=== PATIENT | female | born 1950 | race Caucasian/White ===

== ENCOUNTER 2019-05-01 18:41 | Inpatient (IN) | payer MEDICARE, OTHER ==
[~2019-05-01] VITALS: Ht 162.6 cm; Wt 87.0 kg
[~2019-05-01 18:41] MED LIST: ADULT ASA81 MG OR; ASPIRIN EC81 MG PO; ATORVASTATIN CA40 MG PO; BACLOFEN10 MG PO; BAYER ASA325 MG PO; CITALOPRAM40 MG PO; CRESTOR20 MG OR; DIOVAN HC1 OR; DIOVAN160 MG PO; FLUCONAZOLE150 MG PO; FUROSEMIDE20 MG PO; GABAPENTIN300 MG PO; HYDROCO/APAP1 T10 OR; HYDROCODONE/ACE1 TA8 PO; KADIAN60 MG OR; KLONOPIN1 MG OR; LASIX 10 MG10 MG/TA1 OR; LEXAPRO20 MG OR; LIPITOR40 MG PO; LORTAB 7.5 PO; METFORMIN500 MG PO; RANITIDINE150 M1 OR; VITAMIN D2000 UNI1 OR; ZANTAC150 MG OR; [UNRECOGNIZED DRUG - SUPPLY]
[2019-05-01 19:31] LABS: HEMATOCRIT 43.6 % (37.0-47.0); HEMOGLOBIN 14.9 g/dl (12.0-16.0); IMMATURE GRANULOCYTES 0.4 % (0.0-5.0); MEAN CELL VOLUME 91.8 fL CALC (80.0-100.0); MEAN CORPUSCULAR HGB 31.4 pG CALC (26.0-32.0); MEAN CORPUSCULAR HGB CONC 34.2 g/L CALC (32.0-36.0); NEUT# 8.18 thou/uL (2.00-7.15); RED BLOOD COUNT 4.75 mill/uL (4.20-5.60)
[2019-05-01] MEDS ORDERED: CYCLOBENZAPR5 MG PO (19:50)
[2019-05-01] MEDS ORDERED: MILLIPRED5 MG PO (19:51)
[2019-05-01] MEDS ORDERED: HYDROCODONE BIT1 TA7 PO (19:53)
[2019-05-01] MEDS ORDERED: GLIPIZIDE ER10 M1 PO (19:54)
[2019-05-01] MEDS ORDERED: COZAAR50 MG PO (19:56)
[2019-05-01] MEDS ORDERED: FOLIC ACID1 M1 PO (19:59)
[2019-05-01] MEDS ORDERED: METHOTREXATE2.5 M2 PO (20:02)
[2019-05-01] MEDS ORDERED: METOPROL TAR25 M1 PO (20:03)
[2019-05-01] MEDS ORDERED: MECLIZINE25 M1 PO (20:04)
[2019-05-01] MEDS ORDERED: PRAMIPEXOLE DI0.5 MG PO (20:06)
[2019-05-01] MEDS ORDERED: BUTALBITAL/ACET1 CA1 PO (20:08)
[2019-05-01] MEDS ORDERED: PREDNISONE10 M2 PO (20:10)
[2019-05-01] MEDS ORDERED: LIPITOR20 M1 PO (20:12)
[2019-05-01 20:18] LABS: ALBUMIN 3.8 g/dL (3.2-5.0); ALKALINE PHOSPHATASE 116 u/l (38-126); BILIRUBIN, TOTAL 0.9 mg/dL (0.0-1.4); BUN 7 mg/dL (8-23); BUN/CREATININE RATIO 10 (12-20 (CALC)); CHLORIDE 92 mmol/l (95-108); CREATININE 0.7 mg/dL (0.5-1.0); GFR > 60 ML/MIN (>=60 (CALC)); GFR FOR AFR.AMER. > 60 ML/MIN (>=60 (CALC)); POTASSIUM 3.5 mmol/l (3.5-5.1); TOTAL PROTEIN 7.3 g/dL (6.3-8.2)
[2019-05-01 20:19] LABS: ANION GAP 17 (6-22 (CALC)); CARBON DIOXIDE 22 mmol/l (22-30); SGOT/AST 48 u/l (9-36); SODIUM 127 mmol/l (137-146)
[2019-05-01 22:00] VITALS: BP 131/66
[2019-05-02 03:25] VITALS: BP 147/69
[2019-05-02 08:00] VITALS: BP 151/61
[2019-05-02 10:31] LABS: HEMATOCRIT 47.9 % (37.0-47.0); HEMOGLOBIN 16.1 g/dl (12.0-16.0); IMMATURE GRANULOCYTES 0.4 % (0.0-5.0); MEAN CELL VOLUME 92.1 fL CALC (80.0-100.0); MEAN CORPUSCULAR HGB CONC 33.6 g/L CALC (32.0-36.0); NEUT# 10.55 thou/uL (2.00-7.15); RED BLOOD COUNT 5.2 mill/uL (4.20-5.60); RED CELL DISTRI WIDTH 16.2 % (11.5-15.5)
[2019-05-02 10:55] LABS: ANION GAP 21 (6-22 (CALC)); BUN 15 mg/dL (8-23); BUN/CREATININE RATIO 19 (12-20 (CALC)); CARBON DIOXIDE 20 mmol/l (22-30); CHLORIDE 94 mmol/l (95-108); CREATININE 0.8 mg/dL (0.5-1.0); GFR > 60 ML/MIN (>=60 (CALC)); GFR FOR AFR.AMER. > 60 ML/MIN (>=60 (CALC)); MAGNESIUM 1.9 mg/dL (1.6-2.3); SODIUM 131 mmol/l (137-146)
[2019-05-02 13:52] LABS: URINE BILIRUBIN - DIPSTICK NEGATIVE (NEGATIVE); URINE BLOOD DIPSTICK MODERATE (NEGATIVE); URINE COLOR YELLOW; URINE GLUCOSE - DIPSTICK >=1000 mg/dL (NEGATIVE); URINE KETONE NEGATIVE (NEGATIVE); URINE LEUK ESTERASE NEGATIVE (NEGATIVE); URINE NITRITE - DIPSTICK NEGATIVE (Negative); URINE PH 5.5 (4.5-8.0); URINE PROTEIN - DIPSTICK 30 mg/dL (NEG-TRACE); URINE SPECIFIC GRAVITY 1.015; URINE UROBILINOGEN - DIPSTICK 0.2 E.U./dL (0.2)
[2019-05-02 13:55] LABS: URINE MUCUS FEW hpf (NONE-FEW)
[2019-05-02 15:45] VITALS: BP 102/59
[2019-05-02 18:00] VITALS: BP 131/67
[2019-05-03 03:51] VITALS: BP 115/49
[2019-05-03 05:15] LABS: HEMATOCRIT 43.1 % (37.0-47.0); HEMOGLOBIN 14.4 g/dl (12.0-16.0); IMMATURE GRANULOCYTES 0.5 % (0.0-5.0); MEAN CELL VOLUME 94.1 fL CALC (80.0-100.0); MEAN CORPUSCULAR HGB 31.4 pG CALC (26.0-32.0); MEAN CORPUSCULAR HGB CONC 33.4 g/L CALC (32.0-36.0); NEUT# 12.7 thou/uL (2.00-7.15); RED BLOOD COUNT 4.58 mill/uL (4.20-5.60)
[2019-05-03 05:46] LABS: BUN 16 mg/dL (8-23); BUN/CREATININE RATIO 23 (12-20 (CALC)); CHLORIDE 90 mmol/l (95-108); CREATININE 0.7 mg/dL (0.5-1.0); GFR > 60 ML/MIN (>=60 (CALC)); GFR FOR AFR.AMER. > 60 ML/MIN (>=60 (CALC)); MAGNESIUM 1.9 mg/dL (1.6-2.3); POTASSIUM 3.9 mmol/l (3.5-5.1); SODIUM 127 mmol/l (137-146)
[2019-05-03 05:58] LABS: ANION GAP 15 (6-22 (CALC)); CARBON DIOXIDE 26 mmol/l (22-30)
[2019-05-03 07:50] VITALS: BP 128/53
[2019-05-03 15:11] VITALS: BP 114/54
[2019-05-03 19:47] VITALS: BP 127/60
[2019-05-04 04:38] VITALS: BP 112/56
[2019-05-04 05:17] LABS: HEMATOCRIT 40.1 % (37.0-47.0); HEMOGLOBIN 13.3 g/dl (12.0-16.0); MEAN CELL VOLUME 94.8 fL CALC (80.0-100.0); MEAN CORPUSCULAR HGB 31.4 pG CALC (26.0-32.0); MEAN CORPUSCULAR HGB CONC 33.2 g/L CALC (32.0-36.0); RED BLOOD COUNT 4.23 mill/uL (4.20-5.60); RED CELL DISTRI WIDTH 15.9 % (11.5-15.5)
[2019-05-04 05:35] LABS: BUN 21 mg/dL (8-23); BUN/CREATININE RATIO 27 (12-20 (CALC)); CARBON DIOXIDE 30 mmol/l (22-30); CHLORIDE 93 mmol/l (95-108); CREATININE 0.8 mg/dL (0.5-1.0); GFR > 60 ML/MIN (>=60 (CALC)); GFR FOR AFR.AMER. > 60 ML/MIN (>=60 (CALC)); SODIUM 130 mmol/l (137-146)
[2019-05-04 05:39] LABS: ANION GAP 12 (6-22 (CALC)); POTASSIUM 4.7 mmol/l (3.5-5.1)
[2019-05-04 07:30] VITALS: BP 134/49
[2019-05-04 10:55] VITALS: BP 117/50
[2019-05-04 15:15] VITALS: BP 138/63
[2019-05-04 19:07] VITALS: BP 129/58
[2019-05-05 03:35] VITALS: BP 136/48
[2019-05-05 05:22] LABS: HEMATOCRIT 38.1 % (37.0-47.0); HEMOGLOBIN 12.4 g/dl (12.0-16.0); MEAN CORPUSCULAR HGB 30.9 pG CALC (26.0-32.0); MEAN CORPUSCULAR HGB CONC 32.5 g/L CALC (32.0-36.0); RED BLOOD COUNT 4.01 mill/uL (4.20-5.60)
[2019-05-05 05:50] LABS: ALKALINE PHOSPHATASE 104 u/l (38-126); ANION GAP 11 (6-22 (CALC)); BUN 23 mg/dL (8-23); BUN/CREATININE RATIO 31 (12-20 (CALC)); CARBON DIOXIDE 29 mmol/l (22-30); CHLORIDE 93 mmol/l (95-108); CREATININE 0.8 mg/dL (0.5-1.0); GFR > 60 ML/MIN (>=60 (CALC)); GFR FOR AFR.AMER. > 60 ML/MIN (>=60 (CALC)); MAGNESIUM 2.3 mg/dL (1.6-2.3); SGOT/AST 21 u/l (9-36); SODIUM 129 mmol/l (137-146); TOTAL PROTEIN 6.1 g/dL (6.3-8.2)
[2019-05-05 05:51] LABS: BILIRUBIN, TOTAL 0.4 mg/dL (0.0-1.4)
[2019-05-05 07:45] VITALS: BP 124/54
[2019-05-05 15:05] VITALS: BP 123/52
[2019-05-05 18:38] VITALS: BP 163/62
[2019-05-06 00:39] VITALS: BP 158/66
[2019-05-06 03:30] VITALS: BP 159/66
[2019-05-06 05:40] LABS: ANION GAP 12 (6-22 (CALC)); BUN 20 mg/dL (8-23); BUN/CREATININE RATIO 33 (12-20 (CALC)); CARBON DIOXIDE 29 mmol/l (22-30); CHLORIDE 97 mmol/l (95-108); CREATININE 0.6 mg/dL (0.5-1.0); GFR > 60 ML/MIN (>=60 (CALC)); GFR FOR AFR.AMER. > 60 ML/MIN (>=60 (CALC)); MAGNESIUM 2.3 mg/dL (1.6-2.3); POTASSIUM 4.8 mmol/l (3.5-5.1); SODIUM 133 mmol/l (137-146)
[2019-05-06 07:30] VITALS: BP 156/53
[2019-05-06 15:37] VITALS: BP 173/57
[2019-05-06 18:32] VITALS: BP 128/69
[2019-05-07 08:00] VITALS: BP 101/64
[2019-05-07 15:24] VITALS: BP 119/58
[2019-05-07 19:35] VITALS: BP 141/64
[2019-05-08 04:00] VITALS: BP 135/65
[2019-05-08 05:56] LABS: IMMATURE GRANULOCYTES 1.8 % (0.0-5.0); MEAN CELL VOLUME 94.2 fL CALC (80.0-100.0); MEAN CORPUSCULAR HGB 31.1 pG CALC (26.0-32.0); NEUT# 13.96 thou/uL (2.00-7.15); RED BLOOD COUNT 4.79 mill/uL (4.20-5.60); RED CELL DISTRI WIDTH 16.2 % (11.5-15.5)
[2019-05-08 06:11] LABS: HEMATOCRIT 45.1 % (37.0-47.0); HEMOGLOBIN 14.9 g/dl (12.0-16.0)
[2019-05-08 06:17] LABS: ANION GAP 16 (6-22 (CALC)); BUN 22 mg/dL (8-23); BUN/CREATININE RATIO 29 (12-20 (CALC)); CARBON DIOXIDE 28 mmol/l (22-30); CHLORIDE 94 mmol/l (95-108); CREATININE 0.7 mg/dL (0.5-1.0); GFR > 60 ML/MIN (>=60 (CALC)); GFR FOR AFR.AMER. > 60 ML/MIN (>=60 (CALC)); POTASSIUM 4.7 mmol/l (3.5-5.1); SODIUM 134 mmol/l (137-146)
[2019-05-08 09:13] VITALS: BP 159/75
[2019-05-08] MEDS ORDERED: AMOX/K CLAV875 M1 PO (13:52)
[2019-05-08] MEDS ORDERED: ZITHROMAX500 MG PO (13:52)
[2019-05-08] MEDS ORDERED: PREDNISONE10 MG PO (13:52)
[2019-05-08] MEDS ORDERED: IPRATROPIU0.5 MG/3 M IN (17:38)
== END 2019-05-08 19:00 | disposition home health service (06) | DRG 191 ==
LOC: ED 18:41 → ED-I 20:57 → ED 21:08 → MS2 21:09
PROVIDERS: Family Medicine; Internal Medicine; Nurse Practitioner Family; ADMIT Internal Medicine; ATTEND Internal Medicine
DX: J43.9 Emphysema, unspecified (principal); E87.1 Hypo-osmolality and hyponatremia; I10 Essential (primary) hypertension; E11.9 Type 2 diabetes mellitus without complications; M79.7 Fibromyalgia; M06.9 Rheumatoid arthritis, unspecified; G25.81 Restless legs syndrome; F17.200 Nicotine dependence, unspecified, uncomplicated; E78.5 Hyperlipidemia, unspecified; G89.4 Chronic pain syndrome; M53.3 Sacrococcygeal disorders, not elsewhere classified; M62.81 Muscle weakness (generalized); M19.90 Unspecified osteoarthritis, unspecified site; R41.0 Disorientation, unspecified; R40.0 Somnolence; T48.4X5A Adverse effect of expectorants, initial encounter; T40.2X5A Adverse effect of other opioids, initial encounter; W19.XXXA Unspecified fall, initial encounter; Z85.118 Personal history of other malignant neoplasm of bronchus and lung; Z79.84 Long term (current) use of oral hypoglycemic drugs; Z90.2 Acquired absence of lung [part of]; Z88.0 Allergy status to penicillin
CPT/HCPCS: G0378; J1650; Q9967

== ENCOUNTER 2021-06-05 14:57 | Emergency (ER) | payer MEDICARE, OTHER ==
[~2021-06-05] VITALS: Ht 162.6 cm; Wt 80.0 kg
[~2021-06-05 14:57] MED LIST changes: +AMOX/K CLAV875 M1 PO; +BUTALBITAL/ACET1 CA1 PO; +COZAAR50 MG PO; +CYCLOBENZAPR5 MG PO; +FOLIC ACID1 M1 PO; +GLIPIZIDE ER10 M1 PO; +HYDROCODONE BIT1 TA7 PO; +IPRATROPIU0.5 MG/3 M IN; +LIPITOR20 M1 PO; +MECLIZINE25 M1 PO; +METHOTREXATE2.5 M2 PO; +METOPROL TAR25 M1 PO; +MILLIPRED5 MG PO; +PRAMIPEXOLE DI0.5 MG PO; +PREDNISONE10 M2 PO; +PREDNISONE10 MG PO; +TAM75CAP PO; +ZITHROMAX500 MG PO
[2021-06-05 16:19] LABS: IMMATURE GRANULOCYTES 0.4 % (0.0-5.0); MEAN CELL VOLUME 94.4 fL CALC (80.0-100.0); MEAN CORPUSCULAR HGB 31.3 pG CALC (26.0-32.0); MEAN CORPUSCULAR HGB CONC 33.1 g/dL CAL (32.0-36.0); NEUT# 7.22 thou/uL (2.00-7.15); RED BLOOD COUNT 3.74 mill/uL (4.20-5.60); RED CELL DISTRI WIDTH 15.3 % (11.5-15.5)
[2021-06-05 16:21] LABS: HEMATOCRIT 35.3 % (37.0-47.0); HEMOGLOBIN 11.7 g/dl (12.0-16.0)
[2021-06-05 16:37] LABS: ACT PARTIAL THROMBO TIME 25.9 SECONDS (20.0-32.5); ALBUMIN 3.3 g/dL (3.2-5.0); BILIRUBIN, TOTAL 0.7 mg/dL (0.0-1.4); CREATININE 1.1 mg/dL (0.5-1.0); INTERNATIONAL NORMALIZED RATIO 0.9 RATIO (0.7-1.3); PROTHROMBIN TIME 9.9 SECONDS (9.0-12.5); TOTAL PROTEIN 7.1 g/dL (6.3-8.2)
[2021-06-05] MEDS ORDERED: KEFLEX500 MG PO (17:59)
[2021-06-05 18:30] VITALS: BP 140/46
== END 2021-06-05 18:59 | disposition home or self-care (01) ==
LOC: ED 14:57
DX: S01.01XA Laceration without foreign body of scalp, initial encounter (principal); I10 Essential (primary) hypertension; E11.9 Type 2 diabetes mellitus without complications; W01.0XXA Fall on same level from slipping, tripping and stumbling without subsequent striking against object, initial encounter; Y92.009 Unspecified place in unspecified non-institutional (private) residence as the place of occurrence of the external cause; Z79.84 Long term (current) use of oral hypoglycemic drugs

== ENCOUNTER 2022-06-22 15:07 | Emergency (ER) | payer MEDICARE, OTHER ==
[~2022-06-22] VITALS: Ht 162.6 cm; Wt 76.2 kg
[2022-06-22] VITALS (8 sets, daily range): BP systolic 95–156; BP diastolic 38–78
[~2022-06-22 15:07] MED LIST changes: +BACTRIM DS1 TAB PO; +KEFLEX500 MG PO
[2022-06-22 16:06] LABS: BASO% 0.2 % (0-3); EOS% 1.1 % (0-8); IMMATURE GRANULOCYTES 0.1 % (0.0-5.0); MEAN CELL VOLUME 91.3 fL CALC (80.0-100.0); MEAN CORPUSCULAR HGB 29.2 pG CALC (26.0-32.0); MONO% 10.3 % (2-13); NEUT# 6.58 thou/uL (2.00-7.15); NEUT% 68.3 % (42-76); RED BLOOD COUNT 5.28 mill/uL (4.20-5.60); RED CELL DISTRI WIDTH 12.7 % (11.5-15.5)
[2022-06-22 16:11] LABS: HEMATOCRIT 48.2 % (37.0-47.0); HEMOGLOBIN 15.4 g/dl (12.0-16.0)
[2022-06-22 16:17] LABS: ALBUMIN 3.9 g/dL (3.2-5.0); ALKALINE PHOSPHATASE 134 u/l (38-126); ANION GAP 14 (6-22 (CALC)); BILIRUBIN, TOTAL 1.1 mg/dL (0.02-1.3); BUN 12 mg/dL (8-23); BUN/CREATININE RATIO 13 (12-20 (CALC)); CARBON DIOXIDE 23 mmol/l (22-30); CHLORIDE 98 mmol/l (95-108); CREATININE 0.9 mg/dL (0.5-1.0); GFR FOR AFR.AMER. > 60 ML/MIN (>=60 (CALC)); GFR OTHER RACES > 60 ML/MIN (>=60 (CALC)); LIPASE 35 u/l (23-300); POTASSIUM 3.8 mmol/l (3.5-5.1); SGOT/AST 26 u/l (9-36); SODIUM 131 mmol/l (137-146); TOTAL PROTEIN 7.2 g/dL (6.3-8.2)
[2022-06-22 20:54] LABS: URINE BILIRUBIN - DIPSTICK NEGATIVE (NEGATIVE); URINE BLOOD DIPSTICK NEGATIVE (NEGATIVE); URINE COLOR YELLOW; URINE GLUCOSE - DIPSTICK 100 mg/dL (NEGATIVE); URINE KETONE NEGATIVE (NEGATIVE); URINE LEUK ESTERASE TRACE (NEGATIVE); URINE PH 5.5 (4.5-8.0); URINE PROTEIN - DIPSTICK NEGATIVE (NEG-TRACE); URINE SPECIFIC GRAVITY 1.015; URINE UROBILINOGEN - DIPSTICK 0.2 E.U./dL (0.2)
[2022-06-22 20:57] LABS: URINE NITRITE - DIPSTICK NEGATIVE (Negative)
[2022-06-22] MEDS ORDERED: TOUJEO SOL300 UNIT/M SC (21:23)
[2022-06-22] MEDS ORDERED: LEVOTHYROXIN125 MCG PO (21:23)
[2022-06-22] MEDS ORDERED: OMEPRAZOLE20 MG PO (21:23)
[2022-06-22] MEDS ORDERED: POTASSIUM CHLO10 MEQ PO (21:24)
[2022-06-22] MEDS ORDERED: PREDNISONE5 MG PO (21:24)
[2022-06-22] MEDS ORDERED: ESCITALOPRAM OX10 MG PO (21:24)
[2022-06-22] MEDS ORDERED: CIPROFLOXACN500 MG PO (21:27)
[2022-06-22] MEDS ORDERED: LOMOTIL2.5 MG PO (21:28)
[2022-06-22] MEDS ORDERED: ISOSORB MONO30 MG PO (21:42)
== END 2022-06-22 23:42 | disposition home or self-care (01) ==
LOC: ED 15:07
PROVIDERS: Family Medicine
DX: K52.9 Noninfective gastroenteritis and colitis, unspecified (principal); I10 Essential (primary) hypertension; E11.9 Type 2 diabetes mellitus without complications; E03.9 Hypothyroidism, unspecified; E78.5 Hyperlipidemia, unspecified; K21.9 Gastro-esophageal reflux disease without esophagitis; Z79.4 Long term (current) use of insulin; Z79.84 Long term (current) use of oral hypoglycemic drugs
CPT/HCPCS: J1956; Q9967

== ENCOUNTER 2023-04-24 17:24 | Emergency (ER) | payer MEDICARE ==
[~2023-04-24] VITALS: Ht 162.6 cm; Wt 68.0 kg
[2023-04-24] VITALS (7 sets, daily range): BP systolic 82–140; BP diastolic 31–52
[~2023-04-24 17:24] MED LIST changes: +CIPROFLOXACN500 MG PO; +CYMBALTA60 MG PO; +ESCITALOPRAM OX10 MG PO; +GLIPIZIDE10 M3; +ISOSORB MONO30 MG PO; +LEVOTHYROXIN125 MCG PO; +LEXAPRO20 MG PO; +LOMOTIL2.5 MG PO; +OMEPRAZOLE20 MG PO; +OS-CAL 500500 M1 PO; +OXYBUTYNIN CHLOR5 M2; +POTASSIUM CHLO10 MEQ PO; +PREDNISONE5 MG PO; +TOUJEO SOL300 UNIT/M SC
[2023-04-24 21:30] LABS: BASO% 0.2 % (0-3); EOS% 1.2 % (0-8); HEMATOCRIT 39.5 % (37.0-47.0); IMMATURE GRANULOCYTES 0.1 % (0.0-5.0); LYMPH% 22.2 % (15-41); MEAN CELL VOLUME 89.6 fL CALC (80.0-100.0); MEAN CORPUSCULAR HGB 27.9 pG CALC (26.0-32.0); MEAN CORPUSCULAR HGB CONC 31.1 g/dL CAL (32.0-36.0); MONO% 11.2 % (2-13); NEUT# 5.59 thou/uL (2.00-7.15); NEUT% 65.1 % (42-76); RED BLOOD COUNT 4.41 mill/uL (4.20-5.60); RED CELL DISTRI WIDTH 14.3 % (11.5-15.5)
[2023-04-24 21:31] LABS: HEMOGLOBIN 12.3 g/dl (12.0-16.0)
[2023-04-24 21:50] LABS: ALBUMIN 3.4 g/dL (3.2-5.0); ALKALINE PHOSPHATASE 120 u/l (38-126); BUN 13 mg/dL (8-23); BUN/CREATININE RATIO 16 (12-20 (CALC)); CARBON DIOXIDE 25 mmol/l (22-30); CHLORIDE 97 mmol/l (95-108); CREATININE 0.8 mg/dL (0.5-1.0); GFR FOR AFR.AMER. > 60 ML/MIN (>=60 (CALC)); GFR OTHER RACES > 60 ML/MIN (>=60 (CALC)); SGOT/AST 23 u/l (9-36); SODIUM 132 mmol/l (137-146); TOTAL PROTEIN 6.6 g/dL (6.3-8.2)
[2023-04-24 21:53] LABS: ANION GAP 14 (6-22 (CALC))
[2023-04-25 00:17] VITALS: BP 140/38
== END 2023-04-25 00:42 | disposition home or self-care (01) ==
LOC: ED 17:24
PROVIDERS: Nurse Practitioner
DX: J06.9 Acute upper respiratory infection, unspecified (principal); R00.1 Bradycardia, unspecified; R07.0 Pain in throat; I10 Essential (primary) hypertension; E11.9 Type 2 diabetes mellitus without complications; J44.9 Chronic obstructive pulmonary disease, unspecified; Z79.84 Long term (current) use of oral hypoglycemic drugs; Z20.822 Contact with and (suspected) exposure to COVID-19
CPT/HCPCS: Q9967

== ENCOUNTER 2024-01-06 13:35 | Emergency (ER) | payer MEDICARE ==
[~2024-01-06] VITALS: Ht 162.6 cm; Wt 66.0 kg
[~2024-01-06 13:35] MED LIST changes: +DOXYCYCLINE100 MG PO; +DULOXETINE HCL60 MG PO
[2024-01-06] MEDS ORDERED: LIDOcaine HCl 1% (Local Anesth.) 20 ML VIAL STI STA (13:56)
[2024-01-06] MEDS ORDERED: Diph, Acellular Pertussis, Tet 0.5 ML/VIAL (Tdap) SDV IM ONE (14:00)
[2024-01-06] MEDS ORDERED: MORPHINE SULFATE 4 MG/ML VIAL IV ONE (14:25)
[2024-01-06] MEDS ORDERED: ONDANSETRON HCl 4 MG/2 ML SDV IV ONE (14:25)
[2024-01-06 14:28] LABS: BASO% 0.5 % (0-3); EOS% 1.6 % (0-8); HEMOGLOBIN 12.4 g/dl (12.0-16.0); IMMATURE GRANULOCYTES 0.1 % (0.0-5.0); LYMPH% 29.5 % (15-41); MEAN CELL VOLUME 89.2 fL CALC (80.0-100.0); MEAN CORPUSCULAR HGB 28.4 pG CALC (26.0-32.0); MEAN CORPUSCULAR HGB CONC 31.8 g/dL CAL (32.0-36.0); MONO% 8.7 % (2-13); NEUT# 4.55 thou/uL (2.00-7.15); NEUT% 59.6 % (42-76); RED BLOOD COUNT 4.37 mill/uL (4.20-5.60); RED CELL DISTRI WIDTH 13.8 % (11.5-15.5)
[2024-01-06 14:38] LABS: ALKALINE PHOSPHATASE 148 u/l (38-126); ANION GAP 13 (6-22 (CALC)); BUN 15 mg/dL (8-23); BUN/CREATININE RATIO 19 (12-20 (CALC)); CARBON DIOXIDE 21 mmol/l (22-30); CHLORIDE 105 mmol/l (95-108); CREATININE 0.8 mg/dL (0.5-1.0); ESTIMATED GFR 78 ML/MIN (>=90 (CALC)); POTASSIUM 4.1 mmol/l (3.5-5.1); SGOT/AST 22 u/l (9-36); SODIUM 135 mmol/l (137-146)
[2024-01-06 14:39] LABS: ALBUMIN 4.1 g/dL (3.2-5.0)
[2024-01-06] MEDS ORDERED: KETOROLAC TROMETHAMINE 15 MG/ML SDV IV ONE (17:55)
[2024-01-06 18:10] VITALS: BP 132/81
== END 2024-01-06 18:04 | disposition home or self-care (01) ==
LOC: ED 13:35
PROVIDERS: Family Medicine
PROC: 0HQ0XZZ Repair Scalp Skin, External Approach (ICD-10-PCS; principal; 2024-01-06)
DX: S01.01XA Laceration without foreign body of scalp, initial encounter (principal); S06.9X9A Unspecified intracranial injury with loss of consciousness of unspecified duration, initial encounter; I10 Essential (primary) hypertension; E11.9 Type 2 diabetes mellitus without complications; E03.9 Hypothyroidism, unspecified; J43.9 Emphysema, unspecified; W06.XXXA Fall from bed, initial encounter; Y92.003 Bedroom of unspecified non-institutional (private) residence as the place of occurrence of the external cause; Z91.81 History of falling; Z85.118 Personal history of other malignant neoplasm of bronchus and lung; Z87.820 Personal history of traumatic brain injury; Z90.2 Acquired absence of lung [part of]; Z79.84 Long term (current) use of oral hypoglycemic drugs

== ENCOUNTER 2024-03-27 21:45 | Emergency (ER) | payer MEDICARE ==
[~2024-03-27] VITALS: Ht 162.6 cm; Wt 66.0 kg
[2024-03-28] VITALS (8 sets, daily range): BP systolic 167–233; BP diastolic 67–98
[2024-03-28] MEDS ORDERED: ACETAMINOPHEN 500 MG TAB PO ONE ×2 (00:10→23:55)
[2024-03-28] MEDS ORDERED: KETOROLAC TROMETHAMINE 15 MG/ML SDV IM ONE ×2 (00:10→23:55)
== END 2024-03-28 02:00 | disposition home or self-care (01) ==
LOC: ED 21:45
DX: M79.605 Pain in left leg (principal); I10 Essential (primary) hypertension; E11.9 Type 2 diabetes mellitus without complications; J43.9 Emphysema, unspecified; Z86.79 Personal history of other diseases of the circulatory system; Z91.81 History of falling; Z79.84 Long term (current) use of oral hypoglycemic drugs